=== PATIENT | male | born 1965 | race Caucasian/White ===

== ENCOUNTER 2017-09-11 10:09 | Emergency (ER) | payer OTHER ==
[~2017-09-11] VITALS: Ht 177.8 cm; Wt 86.2 kg
[2017-09-11 10:17] VITALS: BP 113/72
[2017-09-11] MEDS ORDERED: TETANUS-DIPTH-ACEL PERTUSSIS 0.5ML SYRG IM ONE (11:30)
[2017-09-11] MEDS ORDERED: NEOMYCIN-BACITRACIN-POLYM UNITDOSE PKG TOP OINT TOP ONE (12:45)
[2017-09-11] MEDS ORDERED: HYDROcodone-ACET 10/325MG TAB PO ONE (12:45)
[2017-09-11] MEDS ORDERED: LIDOCAINE 1% (LOCAL ANESTH.) PF 5ml SDV ID ONE (12:45)
[2017-09-11] MEDS ORDERED: cefTRIAXone SOD 1,000 MG VL IM ONE (12:45)
[2017-09-11] MEDS ORDERED: KETOROLAC TROMETH 60MG/2ML VIAL IM ONE (12:45)
== END 2017-09-11 14:10 | disposition home or self-care (01) ==
LOC: ER 10:09
DX: S62.633B Displaced fracture of distal phalanx of left middle finger, initial encounter for open fracture (principal); S61.210A Laceration without foreign body of right index finger without damage to nail, initial encounter; S61.313A Laceration without foreign body of left middle finger with damage to nail, initial encounter; E78.5 Hyperlipidemia, unspecified; F17.210 Nicotine dependence, cigarettes, uncomplicated; W26.9XXA Contact with unspecified sharp object(s), initial encounter; Y93.89 Activity, other specified; Y99.8 Other external cause status; Y92.89 Other specified places as the place of occurrence of the external cause
CPT/HCPCS: 12002; 73130; 90715; 99284; J0696; J1885